=== PATIENT | female | born 1955 | race Caucasian/White ===

== ENCOUNTER → 2021-05-02 13:40 | Outpatient (CLI) | payer OTHER, SELFPAY ==
[2021-05-02 17:31] LABS: COVID19 -Nasal RAPID Negative (Negative)
== END ==
PROVIDERS: PCP Internal Medicine; Visit Provider Nurse Practitioner Family
DX: Z20.822 Contact with and (suspected) exposure to COVID-19 (principal)
CPT/HCPCS: 87635; C9803

== ENCOUNTER 2021-05-05 11:55 | Day surgery (SDC) | payer OTHER, SELFPAY ==
--- NOTE | 2021-05-05 | PATH_ITS ---
[facility] Accession Number: [id number] . 01 Material submitted: . colon - TRANSVERSE COLON POLYP X2 . 02 Diagnosis: Transverse Colon Polyps, Biopsies: Sessile serrated adenoma x1. Tubular adenoma x1. MRV 05/08/2021 1156 Local . 02 Electronically signed: . Finesse Escobar MD, PhD, Pathologist NPI- [id number] . 01 Gross description: . TRANSVERSE COLON POLYP X2: Received in formalin are 3 fragment(s) of rodriguez, soft tissue measuring 0.7 x 0.4 x 0.2 cm to 0.5 x 0.1 x 0.1 cm submitted entirely in 1 cassette(s) /CPE 05/07/2021 0950 Local . 02 Pathologist provided ICD-10: D12.3 . 02 CPT . 619855 Specimen Comment: A courtesy copy of this report has been sent to [phone] Performed at: 01 [facility] [address], [place], [place] [id number] MD Jason Manzo MD Phone: [phone] Performed at: 02 [facility] [address] [place], [place] [id number] MD Chula Mendoza MD Phone: [phone]
[2021-05-05 12:46] VITALS: BMI 37.3
[2021-05-05 13:02] VITALS: BP 156/80; PULSE 87; RESP 16; TEMP 37.1; O2SAT 97
[2021-05-05] MEDS: LACTATED RINGERS 1,000 ML 84 ML IV (13:02)
--- NOTE | 2021-05-05 13:49 | PM.HP.1 ---
History of Present Illness History of Present Illness Date Patient Seen: 05/05/21 Time Patient Seen: 13:49 Chief complaint: DX COLONOSCOPY W/POSS BX Narrative: Personal history of adenomatous colon polyp. I reviewed her CT scan that prompted a course of Cipro. She had a an area of thickening in the proximal small bowel that responded nicely to the antibiotic. No recurrence of symptoms. I explained this is not something we typically see on standard endoscopy. Patient History Medical History Chronic back pain Rectal cancer Surgical History History of hip replacement Family & Social History Social History: household members significant other Tobacco & Substance use: Smoking Status Never smoker alcohol intake never Substance Use Type does not use Meds Home Medications and Allergies Home Medications Medication Instructions Recorded Confirmed Type baclofen 10 mg tablet 10 mg PO TID 05/05/21 05/05/21 History diazepam 10 mg tablet 10 mg PO BID 05/05/21 05/05/21 History ondansetron HCl 4 mg tablet 4 mg PO DAILY 05/05/21 05/05/21 History Allergies Allergy/AdvReac Type Severity Reaction Status Date / Time codeine Allergy Intermediate Rash Verified 05/05/21 12:41 Review of Systems Review of Systems ROS: Yes All systems reviewed with the patient and are negative except as otherwise documented Exam Vital Signs (past 8 hours): - 05/05/21 13:02 Temperature 98.8 F Pulse Rate 87 Respiratory Rate 16 Blood Pressure 156/80 H Pulse Oximetry 97 Oxygen Delivery Method Room Air Const General: cooperative and comfortable Orientation: alert HENME Head: normocephalic Ears: external ears normal Nose: external nose normal Face and sinus: normal facial exam Mouth: oral mucosae normal Eyes General: appearance normal, both eyes and all related structures Neck Neck: normal visual inspection Chest Chest: normal inspection of the chest Resp Effort & Inspection: normal respiratory effort Cardio Rate: regular rate GI Inspection: normal to inspection Skin General: no rashes or lesions noted and No jaundice Neuro General: patient alert and moves all extremities Cognition: normal cognition Speech: speech normal Extrem General: no pedal edema Psych Appearance: grossly normal Assessment & Plan Assessment & Plan narrative: 66-year-old female with a personal history of adenomatous colon polyps. She has a personal history of anal cancer and remains in remission. Colonoscopy is pursued today. Time Spent With Patient Critical Care time: I spent a total of [] minutes of critical care time on this patient's care today; this time is exclusive of procedural time.
--- NOTE | 2021-05-05 13:51 | PM.PREOP ---
Pre-operative Note COVID-19 COVID-19 status: Negative Result date/Date tested (Pos, Neg/Pending): 05/02/21 Criteria for continued procedure: Possibility delay results in more complex future surgery or treatment Interval Note History & Physical reviewed/Exam performed by Physician: Yes Changes to H&P: Yes ASA Class (for procedural sedation): II
--- NOTE | 2021-05-05 15:33 | PM.OP.COLON ---
Operative Date/Time/Diagnoses Date of procedure: 05/05/21 Time of procedure: 15:33 Pre-op diagnosis: Personal history of colon polyps Post-op diagnosis: same Procedure & Clinicians Study performed: Colonoscopy with hot snare polypectomy Same procedure as scheduled: Yes Indications: Personal history of colon polyps Surgeon: Miguel A Webb Procedure Notes SCOAP/Timeout: Done Procedure in detail: After the risks and benefits were explained, written and verbal informed consent was obtained. The patient was brought into the procedure room and placed into the left lateral decubitus position. Please see nurse operations supervisor notes for sedation details. Digital rectal examination was accomplished. The scope was introduced into the patient and advanced under direct visualization to the cecum as identified by the appendiceal orifice and ileocecal valve. The scope was slowly withdrawn to carefully examine the mucosa for any defects or lesions. Comprehensive imaging was accomplished throughout the rectum including the dentate line. The colon was decompressed, the scope was then removed from the patient who tolerated the procedure well. Bowel prep adequate Adult colonoscope Scope withdrawal time: 9 minutes Sedation minutes: 31 Complications: none Impression: Patient had a couple of small polyps in the proximal transverse ranging in size from 6-7 mm. These were removed with hot snare polypectomy. Patient had moderate diverticulosis throughout the sigmoid. Navigation was very challenging required abdominal pressure and patient position changes. There were some scattered telangiectasias consistent with prior radiation therapy. The rectosigmoid mucosa appeared to have lost its typical vascular pattern. It did additionally seems somewhat fixed. Endoscopic diagnosis 1. Procto sigmoid mucosal changes consistent with prior radiation therapy 2. Diverticulosis 3. Colon polyps Post-procedure Plan for aftercare: 1. Await histopathology. 2. Repeat colonoscopy 7 years. I recommend a pediatric colonoscope at that time. Disposition: PACU
[2021-05-05 15:35] VITALS: BP 127/104; PULSE 86; RESP 19; TEMP 36.3; O2SAT 97
[2021-05-05 15:40] VITALS: BP 169/77; PULSE 96; RESP 20; O2SAT 98
[2021-05-05 15:45] VITALS: BP 160/83; PULSE 77; RESP 24; O2SAT 98
[2021-05-05 15:51] VITALS: BP 171/77; PULSE 84; RESP 16; O2SAT 100
[2021-05-05 15:57] VITALS: BP 149/65; PULSE 74; RESP 16; O2SAT 98
== END 2021-05-05 16:08 | disposition home or self-care (01) ==
PROVIDERS: PCP Internal Medicine; Referring Provider Nurse Practitioner; Visit Provider Internal Medicine Gastroenterology
PROC: 0DJD8ZZ Inspection of Lower Intestinal Tract, Via Natural or Artificial Opening Endoscopic (ICD-10-PCS; CPT 45378; principal; 2021-05-05 14:00)
DX: Z12.11 Encounter for screening for malignant neoplasm of colon (principal); Z85.048 Personal history of other malignant neoplasm of rectum, rectosigmoid junction, and anus; Z86.010 Personal history of colon polyps; K57.30 Diverticulosis of large intestine without perforation or abscess without bleeding; D12.3 Benign neoplasm of transverse colon
CPT/HCPCS: 45385; J2704

== ENCOUNTER → 2022-02-11 10:15 | Outpatient (CLI) | payer OTHER, SELFPAY ==
[2022-02-11 11:42] LABS: COVID19 -Nasal RAPID Negative (Negative)
== END ==
PROVIDERS: PCP Internal Medicine; Referring Provider Orthopaedic Surgery; Visit Provider Orthopaedic Surgery
DX: Z20.822 Contact with and (suspected) exposure to COVID-19 (principal)
CPT/HCPCS: 87635; C9803

== ENCOUNTER 2022-02-13 08:41 | Day surgery (SDC) | payer OTHER, SELFPAY ==
[2022-02-12 07:47] VITALS: BMI 36.1
--- NOTE | 2022-02-13 | DI.RAD.S_ITS ---
PROCEDURE: XR HUMERUS RT 2V INDICATIONS: ORIF TECHNIQUE: 3 intraoperative fluoroscopic views of the humerus were acquired. COMPARISON: None. FINDINGS: Intraoperative fluoroscopic images of proximal right humerus shows internal fixation of patient's known proximal humeral fracture with surgical plate and multiple surgical screws in place. IMPRESSION: Fluoro guidance was provided intraoperatively for ORIF of right proximal humerus. Dictated by: Betito Ac M.D. on 02/13/2022 at 13:18 Approved by: Betito Ac M.D. on 02/13/2022 at 13:19
[2022-02-13] MEDS: LACTATED RINGERS 1,000 ML 42 ML IV ×2 (09:05→12:31)
[2022-02-13 09:06] VITALS: BP 147/80; PULSE 93; RESP 16; TEMP 36.7; O2SAT 96; BMI 36.1
--- NOTE | 2022-02-13 10:16 | PM.PREOP ---
Pre-operative Note Interval Note History & Physical reviewed/Exam performed by Physician: Yes Changes to H&P: No
--- NOTE | 2022-02-13 10:22 | SUR.PREOP ---
Assisted patient to bathroom to void; moved patient to room 5 in anticipation for a nerve block by anesthesia.
[2022-02-13] MEDS: CEFAZOLIN 2 GM/100 ML PREMIX 100 ML IV (11:14)
[2022-02-13] MEDS: TRANEXAMIC ACID 1,000 MG VIAL 1000 MG INJ (11:14)
--- NOTE | 2022-02-13 11:52 | SUR.OPER ---
Beach chair with [employer] shoulder positioner. Lower body on padded OR bed. Head in foam padded head cradle, secured with straps. Non-operative arm secured <90 degrees abduction on pillow and secured with tape, 2 Pillows under knees. Hells floated and gel pad under bilateral heels, Safety belt at thigh. Cloth tape over blanket over lower legs.
--- NOTE | 2022-02-13 12:01 | SUR.OPER ---
Patients glasses placed in black glass case with patient label and placed into belongings bag in preop area. When patient in OR prior to prep, patient had white soft material covering right axilla. Area cleansed with Chlorhexidine scrub and then 2% Chlorhexidine Gluconate cloth prior to chloraprep by Dr. Carey.
[2022-02-13] MEDS: BUPIVACAINE 0.5% W/ EPI (PF) 30 ML VIAL INJ (12:48)
[2022-02-13 13:07] VITALS: BP 142/75; PULSE 104; RESP 22; TEMP 36.2; O2SAT 92
--- NOTE | 2022-02-13 13:09 | PM.OP.1 ---
Operative Date/Time/Diagnoses Date of procedure: 02/13/22 Time of procedure: 13:09 Pre-op diagnosis: Right proximal humerus fracture, 2 part Post-op diagnosis: same Procedure & Clinicians Procedure: Operative fixation right proximal humerus fracture Same procedure as scheduled: Yes Indications: This is a 67-year-old female who had a ground level fall sustaining a right proximal humerus fracture. 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 In order to obtain earlier range of motion, faster return to work and ensure anatomic healing, she wished to go forward with open reduction internal fixation. Risks and benefits were discussed with her including the risk of infection, damage to internal structures including blood vessels, nerves. Failure of the implant, need for future surgery and anesthesia were also discussed. She expressed understanding with these risks and wished to go forward with surgery. No guarantees were made. Surgeon: Marcellus Carey Director Inpatient Headache Program: Bijal Brown Anesthesia Type: General Operative Notes Findings: Transverse fracture at the surgical neck as seen on fluoroscopy and under direct visualization Closure Type: primary Specimen(s): none sent Prosthetic devices, grafts, tissues, transplants, or devices: [employer] proximal humerus locking plate Estimated Blood Loss (mL): 50 Blood products transfused: none Procedure in detail: Patient was seen in the preoperative holding area. The right upper extremity was examined and marked with my initials. We again went over the risks and benefits of surgery and consent was signed. The patient was brought back to the operating room and placed in a beach chair position. All bony prominences were padded. 2 g of Ancef and 1g of TXA were given. The left upper extremity was prepped and draped in the standard sterile fashion. A time-out was then performed in my initials were again confirmed on the right upper extremity. A standard deltopectoral approach was performed. The cephalic vein was encountered and moved lateral and protected throughout the remainder of the case. The clavipectoral fascia was incised and the conjoined tendon was retracted medially. The biceps tendon was [intact and within the bicipital groove] was preserved through the remainder of the case. The subacromial space and deltoid were freed of all adhesions. The axillary nerve was identified and protected through the entirety of the procedure. The fracture site was debrided and there was significant metaphyseal compression of the bone in this area. Fracture was reduced and held in place. We did note that there was anterior cortical read. A [employer]os [employer]hew proximal humeral locking plate was then fashioned and fixed to the bone just lateral to the bicipital groove with multiple locking screws in the proximal head and bicortical screws in the humeral shaft. Shoulder was then taken through range of motion under multiple fluoroscopic views to confirm adequate hardware placement and fracture reduction. Wounds were thoroughly irrigated. They were then closed with 2-0 PDS and tresa. Sterile dressings were placed the patient was then brought to the postanesthesia care unit. Assisting participation: This operation could not have been safely performed (without compromising the technical results or length of the procedure) without the assistance of a skilled certified surgical first assistant. The certified surgical first assistant was medically necessary for proper positioning, retraction and manipulation of instruments, proper exposure, graft prep, and manipulation of tissue. Post-operative Condition: stable Disposition: PACU Plan for aftercare: Sling for 2 weeks, may come out of the sling for gentle range of motion and activities of daily living. After 2 weeks, I will encourage her to gain full range of motion over the next 4 weeks. At 6 weeks she can work on active range of motion and start working on strengthening. Aquacel dressing to remain on for 2 weeks. This will be removed in clinic as well as the underlying tresa. Okay to shower with soap and water running over top of the dressing. NOTE: If water gets underneath the dressing, please remove the dressing and replace with clean dry 4x4s.
[2022-02-13 13:12] VITALS: BP 136/65; PULSE 103; RESP 18; TEMP 36.6; O2SAT 91
[2022-02-13 13:17] VITALS: BP 146/70; PULSE 99; RESP 18; TEMP 36.3; O2SAT 91
[2022-02-13 13:37] VITALS: BP 129/66; PULSE 101; RESP 18; TEMP 36.6; O2SAT 91
[2022-02-13 14:14] VITALS: BP 146/79; PULSE 99; RESP 17; TEMP 36.7; O2SAT 93
== END 2022-02-13 14:22 | disposition home or self-care (01) ==
PROVIDERS: PCP Internal Medicine; Referring Provider Internal Medicine; Visit Provider Orthopaedic Surgery
PROC: (CPT 23615; principal; 2022-02-13 10:15)
DX: S42.221A 2-part displaced fracture of surgical neck of right humerus, initial encounter for closed fracture (principal); G89.18 Other acute postprocedural pain; W00.0XXA Fall on same level due to ice and snow, initial encounter
CPT/HCPCS: 23615; 64450; 73060; 76000; J0690; J1100; J2250; J2405; J2704; J3010